=== PATIENT | female | born 1995 | race Hispanic/Latino ===

== ENCOUNTER 2021-01-04 08:25 | Outpatient (CLI) | payer OTHER ==
[2021-01-04 17:21] LABS: SARS-CoV-2 PCR by NAA Not Detected (NotDetected)
== END 2021-01-04 08:26 | disposition home or self-care (01) ==
LOC: CSHLAB 08:25
PROVIDERS: ATTEND Family Medicine
DX: Z01.812 Encounter for preprocedural laboratory examination (principal); Z20.822 Contact with and (suspected) exposure to COVID-19
CPT/HCPCS: U0003; U0005

== ENCOUNTER 2021-01-08 05:31 | Inpatient (IN) | payer MEDICAID, OTHER ==
[2021-01-08] MEDS ORDERED: Ondansetron PF 4 MG/2 ML Vial IVP PRN ×4 (06:00→11:05)
[2021-01-08] MEDS ORDERED: hydrALAZINE 20 MG/ML VIAL SLOW IVP PRN ×2 (06:00→11:05)
[2021-01-08] MEDS ORDERED: Bicitra 30 ML UDCUP PO PRN (06:00)
[2021-01-08] MEDS ORDERED: Famotidine/PF 20 mg/2ml Vial SLOW IVP PRN (06:00)
[2021-01-08] MEDS ORDERED: Promethazine HCl 25 MG/ML VIAL IM PRN ×4 (06:00→11:05)
[2021-01-08] MEDS ORDERED: CEFAZOLIN 2 GM in Premix Bag 1 BAG IVPB SCH (06:00)
[2021-01-08 06:26] VITALS: BMI 35.8
[2021-01-08] MEDS: Lactated Ringer's 1,000 ML IV SCH ×2 (06:30→07:30)
[2021-01-08 06:48] LABS: Hemoglobin 12.9 g/dL (12.0-15.5); Mean Corpuscular Hemoglobin 28.2 pg (27.0-33.0); Mean Corpuscular Volume 85.6 fl (81.6-98.3); Mean Platelet Volume 11.1 fl (7.4-10.4); Platelet Count 221 10x3/uL (150-450); RBC Distribution Width 13.6 % (11.5-14.5); Red Blood Cell (RBC) Count 4.57 10x6/uL (3.90-5.03); White Blood Cell (WBC) Count 6.2 10x3/uL (3.5-10.5)
[2021-01-08 07:15] LABS: HBSAg Index 0.19 S/CO (0-0.99); Hep B Surf Ag Non-Reactive S/CO (NonReactive)
[2021-01-08 07:16] LABS: Syphilis Antibody Nonreactive (Nonreactive); Syphilis Antibody Index 0.04 S/CO (<1.00 Non-Reactive)
[2021-01-08] MEDS ORDERED: Morphine PF 10 MG/10 ML VIAL ONE (07:41)
[2021-01-08] MEDS ORDERED: ePHEDrine Sulfate 50 MG/10 ML VIAL ONE (07:41)
[2021-01-08] MEDS ORDERED: PHENYLEPHRINE-NS 100 MCG/ML 10 ML SYRINGE ONE (07:56)
[2021-01-08] MEDS ORDERED: Ondansetron PF 4 MG/2 ML Vial ONE (07:56)
[2021-01-08] MEDS ORDERED: Oxytocin 10 UNITS/ML VIAL ONE ×2 (07:56→08:06)
[2021-01-08] MEDS ORDERED: Fentanyl 100 MCG/2 ML VIAL SLOW IVP PRN ×2 (10:27→11:02)
[2021-01-08] MEDS ORDERED: Ketorolac Tromethamine 30 MG/ML VIAL IVP PRN ×2 (10:27→11:02)
[2021-01-08] MEDS ORDERED: Naloxone HCl 0.4 mg/ml Vial IVP PRN ×4 (10:27→11:02)
[2021-01-08] MEDS ORDERED: Hydrocerin (Eucerin) Cream 120 gm Jar TOP PRN ×2 (10:27→11:02)
[2021-01-08] MEDS ORDERED: Ondansetron HCl/PF 4 MG/2 ML Vial IVP PRN ×2 (10:27→11:02)
[2021-01-08] MEDS ORDERED: Meperidine HCl/PF 25 MG/ML VIAL SLOW IVP PRN ×2 (10:27→11:02)
[2021-01-08] MEDS ORDERED: diphenhydrAMINE 50 MG/ML VIAL IVP PRN ×2 (10:27→11:02)
[2021-01-08] MEDS ORDERED: Naloxone HCl 0.4 mg/ml Vial IV PRN ×2 (10:27→11:02)
[2021-01-08] MEDS ORDERED: Promethazine HCl 25 MG SUPP PR PRN ×2 (10:27→11:02)
[2021-01-08] MEDS ORDERED: Ketorolac Tromethamine 30 MG/ML VIAL ONE (10:28)
[2021-01-08] MEDS ORDERED: Communication Order-Pharmacy FS SCH ×2 (10:30→11:15)
[2021-01-08] MEDS ORDERED: Ketorolac Tromethamine 30 MG/ML VIAL IVP SCH ×2 (10:30→11:15)
[2021-01-08] MEDS ORDERED: Simethicone Chewable 80 MG TAB PO PRN (11:05)
[2021-01-08] MEDS ORDERED: NS w/ Oxytocin 30 units 500 ML IV SCH (11:05)
[2021-01-08] MEDS ORDERED: diphenhydrAMINE 25 MG CAP PO PRN (11:05)
[2021-01-08] MEDS ORDERED: Lanolin Ointment 7 GM TUBE TOP PRN (11:05)
[2021-01-08] MEDS ORDERED: Bisacodyl 10 MG SUPP PR PRN (11:05)
[2021-01-08] MEDS: Ketorolac Tromethamine 30 MG/ML VIAL IVP SCH ×2 (17:54→23:44)
[2021-01-08] MEDS: Docusate Calcium (SURFAK) 240 MG CAP PO SCH (21:14)
[2021-01-08] MEDS: Ferrous Sulfate 325 MG TAB PO SCH (21:15)
[2021-01-08] MEDS ORDERED: Meperidine HCl/PF 25 MG/ML VIAL IM PRN (23:15)
[2021-01-09] MEDS: HYDROcodone/Acetaminophen 5/325 mg Tablet PO PRN ×4 (04:24→22:13)
[2021-01-09] MEDS: Ketorolac Tromethamine 30 MG/ML VIAL IVP SCH (06:06)
[2021-01-09] MEDS: Ferrous Sulfate 325 MG TAB PO SCH ×2 (08:03→22:06)
[2021-01-09] MEDS: Prenatal Vitamin 1 TAB PO SCH (09:06)
[2021-01-09] MEDS: Docusate Calcium (SURFAK) 240 MG CAP PO SCH ×2 (09:06→22:13)
[2021-01-09] MEDS ORDERED: Boostrix 0.5 ML (Tdap) VIAL IM ONE (11:05)
[2021-01-09] MEDS: Ibuprofen 800 MG TAB PO SCH ×2 (16:23→22:12)
[2021-01-09] MEDS ORDERED: Ibuprofen 800 MG TAB PO SCH (22:00)
[2021-01-10] MEDS: HYDROcodone/Acetaminophen 5/325 mg Tablet PO PRN ×3 (05:31→17:30)
[2021-01-10] MEDS: Ibuprofen 800 MG TAB PO SCH ×3 (05:32→21:13)
[2021-01-10] MEDS: Ferrous Sulfate 325 MG TAB PO SCH ×2 (09:31→21:17)
[2021-01-10] MEDS: Prenatal Vitamin 1 TAB PO SCH (09:35)
[2021-01-10] MEDS: Docusate Calcium (SURFAK) 240 MG CAP PO SCH ×2 (09:35→21:13)
[2021-01-11] MEDS: Ibuprofen 800 MG TAB PO SCH (05:34)
[2021-01-11 07:46] VITALS: BP 113/62; TEMP 98.3
[2021-01-11] MEDS: Ferrous Sulfate 325 MG TAB PO SCH (09:37)
[2021-01-11] MEDS: Docusate Calcium (SURFAK) 240 MG CAP PO SCH (09:44)
[2021-01-11] MEDS: Prenatal Vitamin 1 TAB PO SCH (09:45)
== END 2021-01-11 12:50 | disposition home or self-care (01) | DRG 788 ==
LOC: CSHLD 05:31 → CSHPP 11:20 → UNDODISIN 16:50
PROVIDERS: ADMIT Family Medicine; ATTEND Family Medicine
PROC: 10D00Z1 Extraction of Products of Conception, Low, Open Approach (ICD-10-PCS; principal; 2021-01-08)
DX: O34.211 Maternal care for low transverse scar from previous cesarean delivery (principal); Z3A.39 39 weeks gestation of pregnancy; Z37.0 Single live birth; Z20.822 Contact with and (suspected) exposure to COVID-19
CPT/HCPCS: 36415; 51702; 85027; 86780; 86850; 86900; 86901; 87340; J0690; J1885; J2274; J2405; J2590; J7120; S0028